=== PATIENT | male | born 1990 | race Hispanic/Latino ===

== ENCOUNTER 2021-06-12 02:32 | Inpatient (IN) | payer OTHER ==
[2021-06-12 03:05] LABS: #Basophils 0.1 thou/uL (0.0-0.2); #Eosinphils 0.2 thou/uL (0.0-0.7); #Lymphocytes 2.9 thou/uL (1.20-3.40); #Monocytes 1.2 thou/uL (0.11-0.59); #Neutrophils 11.5 thou/uL (1.40-6.50); %Basophils 0.6 % (0.0-1.0); %Lymphocytes 18.5 % (21.0-51.0); %Monocytes 7.6 % (0.0-10.0); %Neutrophils 72.4 % (42.0-75.0); Hemoglobin 15.6 g/dL (14.0-18.0); Mean Corpuscular HGB CONC 36.1 g/dL (32.0-36.0); Mean Corpuscular Hemoglobin 33.4 pg (27.0-31.0); Mean Corpuscular Volume 92.6 fL (78.0-98.0); Mean Platelet Volume 8.3 fL (7.4-10.4); Platelet Count 228 thou/uL (130-400); Red Blood Cell (RBC) Count 4.66 mill/uL (4.70-6.10); White Blood Cell (WBC) Count 15.9 thou/uL (4.8-10.8)
[2021-06-12 03:27] LABS: ALT (SGPT) 49 U/L (8-55); AST (SGOT) 49 U/L (5-34); Alcohol Less than 10 mg/dL (Less than 10); Alkaline Phosphatase 53 U/L (40-110); Anion Gap 15 mmol/L (10-20); BUN (Urea Nitrogen) 16 mg/dL (8.9-20.6); Bilirubin, Total 0.5 mg/dL (0.2-1.2); Calc. Creatinine Clearance 0 mL/min (70-130); Carbon Dioxide 21 mmol/L (22-29); Chloride 105 mmol/L (98-107); Globulin 2.9 g/dL (2.4-3.5); Glucose 149 mg/dL (70-105); Lipase 77 U/L (8-78); Potassium 3.6 mmol/L (3.5-5.1); Protein, Total 6.9 g/dL (6.0-8.3); Sodium 137 mmol/L (136-145)
[2021-06-12] MEDS ORDERED: Fentanyl 100 MCG/2 ML VIAL ONE (04:38)
[2021-06-12] MEDS ORDERED: Ondansetron PF 4 MG/2 ML Vial ONE (04:42)
[2021-06-12] MEDS ORDERED: Ampicillin 2 GM VIAL ONE (04:49)
[2021-06-12] MEDS ORDERED: Lidocaine 1% (PF) 30 ML VIAL ONE (04:54)
[2021-06-12] MEDS ORDERED: Ondansetron PF 4 MG/2 ML Vial IVP PRN (05:14)
[2021-06-12] MEDS ORDERED: Dextrose 50% Abboject 50 ML SYRINGE SLOW IVP PRN (05:14)
[2021-06-12] MEDS ORDERED: hydrALAZINE 20 MG/ML VIAL SLOW IVP PRN (05:14)
[2021-06-12] MEDS ORDERED: Dextrose 5% in Water 1,000 ML IV PRN (05:14)
[2021-06-12] MEDS ORDERED: Ampicillin/Sulbactam 3 GM in Sodium Chloride 0.9% 100 ML IVPB SCH (05:15)
[2021-06-12] MEDS ORDERED: Morphine 4 MG/ML VIAL SLOW IVP PRN ×2 (05:59→20:10)
[2021-06-12] MEDS ORDERED: Boostrix 0.5 ML (Tdap) VIAL ONE ×3 (05:59→06:01)
[2021-06-12 07:32] LABS: SARS-CoV-2 NAA Rapid Test Not Detected (NotDetected)
[2021-06-12] MEDS ORDERED: Sodium Chloride 0.9% 1,000 ML IV SCH ×2 (09:30→12:59)
[2021-06-12] MEDS ORDERED: ceFAZolin Sodium/D5W 2 GM in Premix Bag 1 BAG IVPB SCH (09:45)
[2021-06-12] MEDS: Bacitracin 1 PK TOP SCH ×2 (09:58→20:07)
[2021-06-12] MEDS: Famotidine/PF 20 mg/2ml Vial SLOW IVP SCH ×2 (09:58→20:08)
[2021-06-12 11:05] LABS: Hemoglobin 13.7 g/dL (14.0-18.0); Mean Corpuscular Hemoglobin 32.5 pg (27.0-31.0); Mean Corpuscular Volume 92.7 fL (78.0-98.0); Mean Platelet Volume 8.9 fL (7.4-10.4); Platelet Count 163 thou/uL (130-400); RBC Distribution Width 11.1 % (11.5-14.5); Red Blood Cell (RBC) Count 4.21 mill/uL (4.70-6.10)
[2021-06-12] MEDS ORDERED: Iopamidol 370 76% 100 ML VIAL ONE (11:06)
[2021-06-12] MEDS: Morphine 4 MG/ML VIAL SLOW IVP PRN ×2 (11:48→17:42)
[2021-06-12] MEDS ORDERED: FLU VACC QS2021-22(6MOS UP)/PF 60 MCG/0.5 ML SYRINGE IM ONE (12:00)
[2021-06-12] MEDS: Silver Sulfadiazine 50 GM TUBE TOP SCH ×2 (13:33→20:07)
[2021-06-12 16:22] LABS: Hemoglobin 12.1 g/dL (14.0-18.0); Platelet Count 197 thou/uL (130-400)
[2021-06-12 18:01] LABS: Bacteria/HPF None Seen HPF (None Seen); Bilirubin Negative (Negative); Blood, Urine 3+ (Negative); Clarity Clear (Clear); Glucose, Urine (Dipstick) Normal (Negative); Ketone, Urine Trace mg/dL (Negative); Leukocyte Negative Leu/uL (Negative); Nitrite Negative (Negative); Protein, Urine (Dipstick) 70 mg/dL (Neg-Trace); RBC/HPF Greater than 50 HPF (0-3); Squamous Epithelial 0-3 HPF (0-3); Urobilinogen Normal mg/dL (Less than 2); WBC/HPF 21-50 HPF (0-3); pH, Urine 5.5 (5.0-9.0)
[2021-06-12 18:06] LABS: Amphetamine Not Detected (NotDetected); Barbiturates Screen Not Detected (NotDetected); Benzodiazepine Screen Not Detected (NotDetected); Cocaine Metabolite Screen Not Detected (NotDetected); Methadone Not Detected (NotDetected); Methamphetamine Not Detected (NotDetected); Opiate Screen Detected (NotDetected); Oxycodone Screen Not Detected (NotDetected); Phencyclidine (PCP) Not Detected (NotDetected); THC/Cannabinoid Screen Not Detected (NotDetected); Tricyclic Screen Not Detected (NotDetected)
[2021-06-12] MEDS ORDERED: Cyclobenzaprine 10 MG TAB PO PRN (20:09)
[2021-06-12] MEDS ORDERED: traMADol HCl 50 MG TAB PO PRN (20:09)
[2021-06-12] MEDS: Senokot S 8.6-50 MG TAB PO SCH (21:27)
[2021-06-12] MEDS: Gabapentin 300 MG CAP PO SCH (21:27)
[2021-06-12] MEDS: Acetaminophen 500 MG TAB PO SCH (23:24)
[2021-06-12] MEDS: Sodium Chloride 0.9% 1,000 ML IV SCH (23:24)
[2021-06-13 04:51] LABS: Anion Gap 11 mmol/L (10-20); BUN (Urea Nitrogen) 23 mg/dL (8.9-20.6); Calc. Creatinine Clearance 189 mL/min (70-130); Calcium 7.5 mg/dL (7.8-10.44); Carbon Dioxide 24 mmol/L (22-29); Chloride 102 mmol/L (98-107); Glucose 140 mg/dL (70-105); Magnesium 1.7 mg/dL (1.6-2.6); Phosphorus 2.7 mg/dL (2.3-4.7); Potassium 3.9 mmol/L (3.5-5.1); Sodium 133 mmol/L (136-145)
[2021-06-13] MEDS: Acetaminophen 500 MG TAB PO SCH ×4 (05:31→23:35)
[2021-06-13] MEDS: Sodium Chloride 0.9% 1,000 ML IV SCH ×2 (05:32→17:13)
[2021-06-13 06:36] LABS: Hemoglobin 9.8 g/dL (14.0-18.0); Mean Corpuscular HGB CONC 36.4 g/dL (32.0-36.0); Mean Corpuscular Hemoglobin 33.7 pg (27.0-31.0); Mean Corpuscular Volume 92.4 fL (78.0-98.0); Mean Platelet Volume 8.2 fL (7.4-10.4); Platelet Count 153 thou/uL (130-400); RBC Distribution Width 10.8 % (11.5-14.5); Red Blood Cell (RBC) Count 2.92 mill/uL (4.70-6.10); White Blood Cell (WBC) Count 12.5 thou/uL (4.8-10.8)
[2021-06-13 06:37] LABS: Band 17 % (5-11); Lymphocytes 15 % (21-51); MDiff Complete? YES; Monocytes 9 % (0-10); Neutrophil 59 % (42-75)
[2021-06-13] MEDS: Gabapentin 300 MG CAP PO SCH ×3 (10:07→20:01)
[2021-06-13] MEDS: Polyethylene Glycol 3350 17 GM Packet PO SCH (10:07)
[2021-06-13] MEDS: Senokot S 8.6-50 MG TAB PO SCH ×2 (10:07→20:01)
[2021-06-13] MEDS: Silver Sulfadiazine 50 GM TUBE TOP SCH ×2 (10:09→20:01)
[2021-06-13] MEDS: Magnesium 2 GM/50 ML 2 GM in Premix Bag 1 BAG IVPB SCH ×2 (10:12→11:41)
[2021-06-13] MEDS: Famotidine/PF 20 mg/2ml Vial SLOW IVP SCH ×2 (10:12→20:01)
[2021-06-13] MEDS: Bacitracin 1 PK TOP SCH ×2 (10:13→20:02)
[2021-06-13] MEDS ORDERED: Potassium Phosphate 30 MMOL in Sodium Chloride 0.9% 500 ML IVPB SCH (12:00)
[2021-06-13] MEDS ORDERED: hydrALAZINE 20 MG/ML VIAL ONE (12:05)
[2021-06-13] MEDS ORDERED: HYDROmorphone 0.5 MG/0.5 ML SYRINGE ONE (12:25)
[2021-06-13] MEDS ORDERED: Ketorolac Tromethamine 30 MG/ML VIAL ONE (12:54)
[2021-06-13] MEDS ORDERED: Lidocaine 1% PF 5 ML VIAL ONE (12:54)
[2021-06-13] MEDS ORDERED: PHENYLEPHRINE-NS 100 MCG/ML 10 ML SYRINGE ONE (12:54)
[2021-06-13] MEDS ORDERED: PROPOFOL 200 MG/20 ML VIAL ONE (12:54)
[2021-06-13] MEDS ORDERED: Dexamethasone 20 MG/5 ML VIAL ONE (12:54)
[2021-06-13] MEDS ORDERED: Ondansetron PF 4 MG/2 ML Vial ONE (12:54)
[2021-06-13] MEDS ORDERED: Esmolol 100 MG/10 ML VIAL ONE (12:54)
[2021-06-13] MEDS ORDERED: Phenylephrine 10 MG/ML VIAL ONE (13:21)
[2021-06-13] MEDS ORDERED: Bupivacaine PF 0.5% 30 ML VIAL ONE (13:43)
[2021-06-13] MEDS ORDERED: HYDROmorphone 2 MG/ML VIAL ONE (14:03)
[2021-06-13] MEDS ORDERED: Promethazine HCl 25 MG/ML VIAL IVPB PRN (14:30)
[2021-06-13] MEDS ORDERED: Promethazine HCl 25 MG/ML VIAL IM PRN (14:30)
[2021-06-13] MEDS ORDERED: HYDROmorphone 2 MG/ML VIAL SLOW IVP PRN (14:30)
[2021-06-13] MEDS: traMADol HCl 50 MG TAB PO PRN (17:50)
[2021-06-13] MEDS ORDERED: ceFAZolin Sodium/D5W 2 GM in Premix Bag 1 BAG IVPB SCH (21:00)
[2021-06-13] MEDS: CEFAZOLIN 2 GM in Premix Bag 1 BAG IVPB SCH (22:45)
[2021-06-14] MEDS: CEFAZOLIN 2 GM in Premix Bag 1 BAG IVPB SCH (05:34)
[2021-06-14] MEDS: Acetaminophen 500 MG TAB PO SCH ×4 (05:35→23:27)
[2021-06-14 06:16] LABS: #Eosinphils 0.1 thou/uL (0.0-0.7); #Lymphocytes 1.3 thou/uL (1.20-3.40); #Monocytes 1.6 thou/uL (0.11-0.59); #Neutrophils 10.5 thou/uL (1.40-6.50); %Basophils 0.1 % (0.0-1.0); %Eosinophils 0.4 % (0.0-10.0); %Lymphocytes 9.9 % (21.0-51.0); %Neutrophils 77.7 % (42.0-75.0); Mean Corpuscular HGB CONC 35.8 g/dL (32.0-36.0); Mean Corpuscular Hemoglobin 32.8 pg (27.0-31.0); Mean Corpuscular Volume 91.5 fL (78.0-98.0); Mean Platelet Volume 7.7 fL (7.4-10.4); Platelet Count 140 thou/uL (130-400); RBC Distribution Width 10.7 % (11.5-14.5); Red Blood Cell (RBC) Count 2.14 mill/uL (4.70-6.10); White Blood Cell (WBC) Count 13.5 thou/uL (4.8-10.8)
[2021-06-14 06:37] LABS: Anion Gap 10 mmol/L (10-20); BUN (Urea Nitrogen) 13 mg/dL (8.9-20.6); Calc. Creatinine Clearance 257 mL/min (70-130); Calcium 7.4 mg/dL (7.8-10.44); Carbon Dioxide 26 mmol/L (22-29); Chloride 102 mmol/L (98-107); Glucose 116 mg/dL (70-105); Phosphorus 2.2 mg/dL (2.3-4.7); Potassium 4.4 mmol/L (3.5-5.1); Sodium 134 mmol/L (136-145)
[2021-06-14 06:39] LABS: Magnesium 2.5 mg/dL (1.6-2.6)
[2021-06-14] MEDS: Gabapentin 300 MG CAP PO SCH ×3 (08:19→20:32)
[2021-06-14] MEDS: Senokot S 8.6-50 MG TAB PO SCH ×2 (08:19→20:31)
[2021-06-14] MEDS: traMADol HCl 50 MG TAB PO PRN ×3 (08:19→23:28)
[2021-06-14] MEDS: Polyethylene Glycol 3350 17 GM Packet PO SCH (08:20)
[2021-06-14] MEDS: Silver Sulfadiazine 50 GM TUBE TOP SCH ×2 (08:21→20:34)
[2021-06-14] MEDS: Famotidine/PF 20 mg/2ml Vial SLOW IVP SCH (08:21)
[2021-06-14] MEDS: Bacitracin 1 PK TOP SCH ×2 (08:21→20:33)
[2021-06-14 08:42] LABS: Hemoglobin 7.2 g/dL (14.0-18.0); Mean Corpuscular HGB CONC 34.3 g/dL (32.0-36.0); Mean Corpuscular Volume 93.2 fL (78.0-98.0); Platelet Count 147 thou/uL (130-400); RBC Distribution Width 10.7 % (11.5-14.5); Red Blood Cell (RBC) Count 2.25 mill/uL (4.70-6.10)
[2021-06-14 09:00] LABS: Band 8 % (5-11); Lymphocytes 5 % (21-51); MDiff Complete? YES; Monocytes 7 % (0-10); Neutrophil 79 % (42-75); Platelet Morphology Comment Appears Adequate; Polychromasia SLIGHT = 2-3 cells (100X) (0-2/hpf); Reactive Lymphocytes 1 % (0-10); White Blood Cell (WBC) Count 13.7 thou/uL (4.8-10.8)
[2021-06-14] MEDS ORDERED: Potassium Phosphate 30 MMOL in Sodium Chloride 0.9% 250 ML 250 ML IVPB SCH (09:15)
[2021-06-14] MEDS: Ascorbic Acid 500 mg Chewable Tablet PO SCH ×2 (11:38→20:31)
[2021-06-14] MEDS: Ferrous Sulfate 325 MG TAB PO SCH ×2 (11:38→20:32)
[2021-06-14] MEDS: Ibuprofen 600 MG TAB PO SCH ×2 (13:55→21:00)
[2021-06-14] MEDS ORDERED: Ferrous Sulfate 325 MG TAB PO SCH (17:00)
[2021-06-14] MEDS: Famotidine 20 MG TAB PO SCH (20:32)
[2021-06-14] MEDS ORDERED: Ascorbic Acid 500 mg Chewable Tablet PO SCH (21:00)
[2021-06-15] MEDS: Ibuprofen 600 MG TAB PO SCH ×2 (02:56→10:52)
[2021-06-15] MEDS: Acetaminophen 500 MG TAB PO SCH ×3 (05:50→17:03)
[2021-06-15 06:07] LABS: #Eosinphils 0.1 thou/uL (0.0-0.7); #Lymphocytes 2.6 thou/uL (1.20-3.40); #Monocytes 1.4 thou/uL (0.11-0.59); #Neutrophils 10.2 thou/uL (1.40-6.50); %Basophils 0.3 % (0.0-1.0); %Eosinophils 0.6 % (0.0-10.0); %Lymphocytes 17.9 % (21.0-51.0); %Neutrophils 71.3 % (42.0-75.0); Hemoglobin 6.6 g/dL (14.0-18.0); Mean Corpuscular HGB CONC 36.1 g/dL (32.0-36.0); Mean Corpuscular Volume 94.4 fL (78.0-98.0); Mean Platelet Volume 7.7 fL (7.4-10.4); Platelet Count 195 thou/uL (130-400); Red Blood Cell (RBC) Count 1.95 mill/uL (4.70-6.10); White Blood Cell (WBC) Count 14.3 thou/uL (4.8-10.8)
[2021-06-15 06:25] LABS: Anion Gap 8 mmol/L (10-20); BUN (Urea Nitrogen) 13 mg/dL (8.9-20.6); Calc. Creatinine Clearance 251 mL/min (70-130); Calcium 7.7 mg/dL (7.8-10.44); Carbon Dioxide 26 mmol/L (22-29); Chloride 105 mmol/L (98-107); Glucose 94 mg/dL (70-105); Potassium 4.2 mmol/L (3.5-5.1); Sodium 135 mmol/L (136-145)
[2021-06-15] MEDS: Famotidine 20 MG TAB PO SCH ×2 (08:48→19:51)
[2021-06-15] MEDS: Bacitracin 1 PK TOP SCH ×2 (08:49→19:52)
[2021-06-15] MEDS: Ascorbic Acid 500 mg Chewable Tablet PO SCH ×2 (08:50→19:52)
[2021-06-15] MEDS: Gabapentin 300 MG CAP PO SCH ×3 (08:50→19:53)
[2021-06-15] MEDS: Ferrous Sulfate 325 MG TAB PO SCH ×2 (08:51→19:00)
[2021-06-15] MEDS: Senokot S 8.6-50 MG TAB PO SCH ×2 (08:51→19:52)
[2021-06-15] MEDS: Polyethylene Glycol 3350 17 GM Packet PO SCH (08:52)
[2021-06-15] MEDS: Silver Sulfadiazine 50 GM TUBE TOP SCH ×2 (10:51→20:59)
[2021-06-15] MEDS: traMADol HCl 50 MG TAB PO SCH (18:23)
[2021-06-16] MEDS: Acetaminophen 500 MG TAB PO SCH ×4 (00:24→18:40)
[2021-06-16] MEDS: traMADol HCl 50 MG TAB PO SCH ×4 (00:26→18:41)
[2021-06-16] MEDS: Cyclobenzaprine 10 MG TAB PO PRN ×3 (01:46→21:34)
[2021-06-16 06:11] LABS: Hemoglobin 8.9 g/dL (14.0-18.0); Mean Corpuscular HGB CONC 34.3 g/dL (32.0-36.0); Mean Corpuscular Hemoglobin 31.7 pg (27.0-31.0); Mean Corpuscular Volume 92.5 fL (78.0-98.0); Mean Platelet Volume 7.4 fL (7.4-10.4); Platelet Count 283 thou/uL (130-400); RBC Distribution Width 11.7 % (11.5-14.5); White Blood Cell (WBC) Count 16.8 thou/uL (4.8-10.8)
[2021-06-16 06:21] LABS: Anion Gap 13 mmol/L (10-20); BUN (Urea Nitrogen) 12 mg/dL (8.9-20.6); Calc. Creatinine Clearance 232 mL/min (70-130); Calcium 8.3 mg/dL (7.8-10.44); Carbon Dioxide 24 mmol/L (22-29); Chloride 102 mmol/L (98-107); Glucose 96 mg/dL (70-105); Phosphorus 3.4 mg/dL (2.3-4.7); Potassium 4.3 mmol/L (3.5-5.1); Sodium 135 mmol/L (136-145)
[2021-06-16 06:36] LABS: Band 11 % (5-11); Eosinophils 2 % (0-10); Lymphocytes 7 % (21-51); MDiff Complete? YES; Metamyelocyte 2 % (0-0); Monocytes 6 % (0-10); Myelocyte 3 % (0-0); Neutrophil 69 % (42-75); Nucleated RBC 2 % (0)
[2021-06-16] MEDS: Senokot S 8.6-50 MG TAB PO SCH ×2 (10:05→21:31)
[2021-06-16] MEDS: Ferrous Sulfate 325 MG TAB PO SCH ×2 (10:05→21:28)
[2021-06-16] MEDS: Ascorbic Acid 500 mg Chewable Tablet PO SCH ×2 (10:05→21:28)
[2021-06-16] MEDS: Gabapentin 300 MG CAP PO SCH ×3 (10:06→21:29)
[2021-06-16] MEDS: Bacitracin 1 PK TOP SCH ×2 (10:06→21:28)
[2021-06-16] MEDS: Polyethylene Glycol 3350 17 GM Packet PO SCH (10:07)
[2021-06-16] MEDS: Silver Sulfadiazine 50 GM TUBE TOP SCH ×2 (10:07→21:31)
[2021-06-16 19:21] LABS: Hemoglobin 8.8 g/dL (14.0-18.0); Platelet Count 288 thou/uL (130-400)
[2021-06-16] MEDS: Enoxaparin Sodium 40 MG/0.4 ML SYRINGE SC SCH (21:27)
[2021-06-17] MEDS: traMADol HCl 50 MG TAB PO SCH ×4 (00:17→18:17)
[2021-06-17] MEDS: Acetaminophen 500 MG TAB PO SCH ×4 (00:18→18:18)
[2021-06-17 08:09] LABS: Hemoglobin 9.1 g/dL (14.0-18.0); Mean Corpuscular HGB CONC 36.3 g/dL (32.0-36.0); Mean Corpuscular Hemoglobin 33.4 pg (27.0-31.0); Mean Corpuscular Volume 92.2 fL (78.0-98.0); Mean Platelet Volume 7.2 fL (7.4-10.4); Platelet Count 319 thou/uL (130-400); RBC Distribution Width 12.3 % (11.5-14.5); Red Blood Cell (RBC) Count 2.73 mill/uL (4.70-6.10); White Blood Cell (WBC) Count 21.6 thou/uL (4.8-10.8)
[2021-06-17 08:12] LABS: Band 10 % (5-11); Eosinophils 2 % (0-10); Lymphocytes 11 % (21-51); MDiff Complete? YES; Metamyelocyte 3 % (0-0); Monocytes 10 % (0-10); Myelocyte 2 % (0-0); Neutrophil 61 % (42-75); Platelet Morphology Comment Appears Adequate; Polychromasia MODERATE = 3-4 cells (100X) (0-2/hpf)
[2021-06-17] MEDS: traMADol HCl 50 MG TAB PO PRN (09:29)
[2021-06-17] MEDS: Polyethylene Glycol 3350 17 GM Packet PO SCH (09:30)
[2021-06-17] MEDS: Ferrous Sulfate 325 MG TAB PO SCH ×2 (09:31→21:11)
[2021-06-17] MEDS: Bacitracin 1 PK TOP SCH ×2 (09:31→21:12)
[2021-06-17] MEDS: Senokot S 8.6-50 MG TAB PO SCH ×2 (09:31→21:10)
[2021-06-17] MEDS: Gabapentin 300 MG CAP PO SCH ×3 (09:31→21:11)
[2021-06-17] MEDS: Ascorbic Acid 500 mg Chewable Tablet PO SCH ×2 (09:31→21:10)
[2021-06-17] MEDS: Silver Sulfadiazine 50 GM TUBE TOP SCH ×2 (09:32→21:12)
[2021-06-17 18:08] LABS: Magnesium 2.1 mg/dL (1.6-2.6)
[2021-06-17 20:27] LABS: Magnesium 2.1 mg/dL (1.6-2.6)
[2021-06-17] MEDS: Enoxaparin Sodium 40 MG/0.4 ML SYRINGE SC SCH (21:12)
[2021-06-18] MEDS: traMADol HCl 50 MG TAB PO SCH ×5 (00:34→18:39)
[2021-06-18] MEDS: Acetaminophen 500 MG TAB PO SCH ×4 (00:34→17:45)
[2021-06-18 06:17] LABS: Band 10 % (5-11); Eosinophils 4 % (0-10); Lymphocytes 8 % (21-51); MDiff Complete? YES; Mean Corpuscular HGB CONC 31.2 g/dL (32.0-36.0); Mean Corpuscular Hemoglobin 29.5 pg (27.0-31.0); Mean Corpuscular Volume 94.7 fL (78.0-98.0); Mean Platelet Volume 7.1 fL (7.4-10.4); Metamyelocyte 6 % (0-0); Monocytes 5 % (0-10); Myelocyte 2 % (0-0); Neutrophil 65 % (42-75); Platelet Count 403 thou/uL (130-400); Platelet Morphology Comment Appears Adequate; RBC Distribution Width 12.4 % (11.5-14.5); Red Blood Cell (RBC) Count 3.05 mill/uL (4.70-6.10); White Blood Cell (WBC) Count 23.4 thou/uL (4.8-10.8)
[2021-06-18 06:41] LABS: Anion Gap 12 mmol/L (10-20); BUN (Urea Nitrogen) 16 mg/dL (8.9-20.6); Calc. Creatinine Clearance 258 mL/min (70-130); Calcium 8.6 mg/dL (7.8-10.44); Carbon Dioxide 24 mmol/L (22-29); Chloride 102 mmol/L (98-107); Glucose 104 mg/dL (70-105); Phosphorus 5.2 mg/dL (2.3-4.7); Potassium 4.6 mmol/L (3.5-5.1); Sodium 133 mmol/L (136-145)
[2021-06-18] MEDS ORDERED: Magnesium Citrate 300 ML BOT PO SCH (08:00)
[2021-06-18] MEDS: Polyethylene Glycol 3350 17 GM Packet PO SCH (08:59)
[2021-06-18] MEDS: traMADol HCl 50 MG TAB PO PRN (09:04)
[2021-06-18] MEDS: Senokot S 8.6-50 MG TAB PO SCH ×3 (09:04→20:35)
[2021-06-18] MEDS: Gabapentin 300 MG CAP PO SCH ×3 (09:05→20:32)
[2021-06-18] MEDS: Ferrous Sulfate 325 MG TAB PO SCH ×2 (09:05→20:33)
[2021-06-18] MEDS: Silver Sulfadiazine 50 GM TUBE TOP SCH ×2 (09:05→20:35)
[2021-06-18] MEDS: Aspirin 81 mg Enteric Coated Tablet PO SCH (09:05)
[2021-06-18] MEDS: Ascorbic Acid 500 mg Chewable Tablet PO SCH ×2 (09:05→20:32)
[2021-06-18] MEDS: Bacitracin 1 PK TOP SCH ×2 (09:05→20:32)
[2021-06-18] MEDS ORDERED: Ibuprofen 600 MG TAB PO SCH (18:00)
[2021-06-18] MEDS: Ibuprofen 200 MG TAB PO SCH (18:39)
[2021-06-18] MEDS ORDERED: Diazepam 2 MG TAB PO SCH (19:00)
[2021-06-18] MEDS: Enoxaparin Sodium 30 MG/0.3 ML SYRINGE SC SCH (20:33)
[2021-06-19] MEDS: traMADol HCl 50 MG TAB PO SCH ×5 (00:09→23:31)
[2021-06-19] MEDS: Acetaminophen 500 MG TAB PO SCH ×5 (00:10→23:32)
[2021-06-19] MEDS: Ibuprofen 200 MG TAB PO SCH ×3 (02:16→19:06)
[2021-06-19 06:36] LABS: Anion Gap 15 mmol/L (10-20); BUN (Urea Nitrogen) 17 mg/dL (8.9-20.6); Calc. Creatinine Clearance 256 mL/min (70-130); Calcium 8.7 mg/dL (7.8-10.44); Carbon Dioxide 25 mmol/L (22-29); Chloride 102 mmol/L (98-107); Glucose 100 mg/dL (70-105); Magnesium 2.2 mg/dL (1.6-2.6); Phosphorus 5.3 mg/dL (2.3-4.7); Potassium 4.7 mmol/L (3.5-5.1); Sodium 137 mmol/L (136-145)
[2021-06-19 06:43] LABS: Band 3 % (5-11); Eosinophils 1 % (0-10); Hemoglobin 8.9 g/dL (14.0-18.0); Lymphocytes 7 % (21-51); MDiff Complete? YES; Mean Corpuscular HGB CONC 32.4 g/dL (32.0-36.0); Mean Corpuscular Volume 95.6 fL (78.0-98.0); Metamyelocyte 1 % (0-0); Monocytes 4 % (0-10); Myelocyte 5 % (0-0); Neutrophil 74 % (42-75); Platelet Count 421 thou/uL (130-400); Platelet Morphology Comment Appears Increased; RBC Distribution Width 12.4 % (11.5-14.5); RBC Morphology Normal; Reactive Lymphocytes 4 % (0-10); Red Blood Cell (RBC) Count 2.88 mill/uL (4.70-6.10); White Blood Cell (WBC) Count 20.4 thou/uL (4.8-10.8)
[2021-06-19] MEDS: Ascorbic Acid 500 mg Chewable Tablet PO SCH ×2 (08:36→20:39)
[2021-06-19] MEDS: Aspirin 81 mg Enteric Coated Tablet PO SCH (08:38)
[2021-06-19] MEDS: Bacitracin 1 PK TOP SCH ×2 (08:39→20:39)
[2021-06-19] MEDS: Enoxaparin Sodium 30 MG/0.3 ML SYRINGE SC SCH ×2 (08:39→20:38)
[2021-06-19] MEDS: Ferrous Sulfate 325 MG TAB PO SCH ×2 (08:41→20:39)
[2021-06-19] MEDS: Gabapentin 300 MG CAP PO SCH ×3 (08:42→20:39)
[2021-06-19] MEDS: Senokot S 8.6-50 MG TAB PO SCH ×2 (08:47→20:39)
[2021-06-19] MEDS: Polyethylene Glycol 3350 17 GM Packet PO SCH (08:47)
[2021-06-19] MEDS: Silver Sulfadiazine 50 GM TUBE TOP SCH ×2 (08:49→20:40)
[2021-06-19 22:38] LABS: SARS-CoV-2 PCR by NAA Not Detected (NotDetected)
[2021-06-20] MEDS: Ibuprofen 200 MG TAB PO SCH ×3 (03:05→18:23)
[2021-06-20] MEDS: Acetaminophen 500 MG TAB PO SCH ×4 (05:46→23:17)
[2021-06-20] MEDS: traMADol HCl 50 MG TAB PO SCH ×4 (05:47→23:07)
[2021-06-20 06:17] LABS: #Basophils 0.1 thou/uL (0.0-0.2); #Eosinphils 0.6 thou/uL (0.0-0.7); #Lymphocytes 2.3 thou/uL (1.20-3.40); #Monocytes 1.4 thou/uL (0.11-0.59); %Basophils 0.3 % (0.0-1.0); %Eosinophils 3.4 % (0.0-10.0); %Lymphocytes 13.3 % (21.0-51.0); %Monocytes 7.9 % (0.0-10.0); %Neutrophils 75.1 % (42.0-75.0); Mean Corpuscular HGB CONC 32.4 g/dL (32.0-36.0); Mean Corpuscular Hemoglobin 30.7 pg (27.0-31.0); Mean Corpuscular Volume 94.9 fL (78.0-98.0); Mean Platelet Volume 6.8 fL (7.4-10.4); Platelet Count 504 thou/uL (130-400); RBC Distribution Width 12.4 % (11.5-14.5); Red Blood Cell (RBC) Count 2.92 mill/uL (4.70-6.10); White Blood Cell (WBC) Count 17.3 thou/uL (4.8-10.8)
[2021-06-20] MEDS: Senokot S 8.6-50 MG TAB PO SCH ×2 (09:02→20:54)
[2021-06-20] MEDS: Polyethylene Glycol 3350 17 GM Packet PO SCH (09:02)
[2021-06-20] MEDS: Ferrous Sulfate 325 MG TAB PO SCH ×2 (09:08→20:53)
[2021-06-20] MEDS: Bacitracin 1 PK TOP SCH ×2 (09:08→20:50)
[2021-06-20] MEDS: Aspirin 81 mg Enteric Coated Tablet PO SCH (09:08)
[2021-06-20] MEDS: Ascorbic Acid 500 mg Chewable Tablet PO SCH ×2 (09:08→20:49)
[2021-06-20] MEDS: Enoxaparin Sodium 30 MG/0.3 ML SYRINGE SC SCH ×2 (09:09→20:50)
[2021-06-20] MEDS: Silver Sulfadiazine 50 GM TUBE TOP SCH ×2 (09:10→20:55)
[2021-06-20] MEDS: Gabapentin 300 MG CAP PO SCH ×3 (09:10→20:53)
[2021-06-20] MEDS: Cyclobenzaprine 10 MG TAB PO PRN (20:53)
[2021-06-21] MEDS: Ibuprofen 200 MG TAB PO SCH ×3 (03:24→18:10)
[2021-06-21] MEDS: Acetaminophen 500 MG TAB PO SCH ×3 (06:17→18:10)
[2021-06-21] MEDS: traMADol HCl 50 MG TAB PO SCH ×3 (06:18→18:11)
[2021-06-21] MEDS: Aspirin 81 mg Enteric Coated Tablet PO SCH (09:27)
[2021-06-21] MEDS: Ferrous Sulfate 325 MG TAB PO SCH ×2 (09:28→21:20)
[2021-06-21] MEDS: Bacitracin 1 PK TOP SCH ×2 (09:28→21:20)
[2021-06-21] MEDS: Gabapentin 300 MG CAP PO SCH ×3 (09:28→21:20)
[2021-06-21] MEDS: Ascorbic Acid 500 mg Chewable Tablet PO SCH ×2 (09:28→21:21)
[2021-06-21] MEDS: Enoxaparin Sodium 30 MG/0.3 ML SYRINGE SC SCH ×2 (09:29→21:19)
[2021-06-21] MEDS: Polyethylene Glycol 3350 17 GM Packet PO SCH (09:29)
[2021-06-21] MEDS: Senokot S 8.6-50 MG TAB PO SCH ×2 (09:29→21:20)
[2021-06-21] MEDS: Silver Sulfadiazine 50 GM TUBE TOP SCH ×2 (09:33→21:21)
[2021-06-21] MEDS ORDERED: Morphine 4 MG/ML VIAL ONE (12:39)
[2021-06-21] MEDS ORDERED: Morphine 4 MG/ML VIAL SLOW IVP PRN (12:43)
[2021-06-21] MEDS: Cyclobenzaprine 10 MG TAB PO PRN (21:20)
[2021-06-22] MEDS: traMADol HCl 50 MG TAB PO SCH ×5 (00:30→23:33)
[2021-06-22] MEDS: Acetaminophen 500 MG TAB PO SCH ×5 (00:31→23:32)
[2021-06-22] MEDS: Ibuprofen 200 MG TAB PO SCH ×3 (03:14→18:12)
[2021-06-22] MEDS: Enoxaparin Sodium 30 MG/0.3 ML SYRINGE SC SCH ×2 (09:10→20:50)
[2021-06-22] MEDS: Bacitracin 1 PK TOP SCH ×2 (09:10→20:50)
[2021-06-22] MEDS: Aspirin 81 mg Enteric Coated Tablet PO SCH (09:10)
[2021-06-22] MEDS: Ascorbic Acid 500 mg Chewable Tablet PO SCH ×2 (09:11→20:50)
[2021-06-22] MEDS: Ferrous Sulfate 325 MG TAB PO SCH ×2 (09:11→20:50)
[2021-06-22] MEDS: Gabapentin 300 MG CAP PO SCH ×3 (09:11→20:50)
[2021-06-22] MEDS: Silver Sulfadiazine 50 GM TUBE TOP SCH ×2 (09:12→20:51)
[2021-06-22] MEDS: Senokot S 8.6-50 MG TAB PO SCH ×2 (09:12→20:50)
[2021-06-22] MEDS: Polyethylene Glycol 3350 17 GM Packet PO SCH (09:12)
[2021-06-22 09:46] LABS: #Basophils 0.1 thou/uL (0.0-0.2); #Eosinphils 0.5 thou/uL (0.0-0.7); #Monocytes 0.6 thou/uL (0.11-0.59); #Neutrophils 15.5 thou/uL (1.40-6.50); %Basophils 0.4 % (0.0-1.0); %Eosinophils 2.4 % (0.0-10.0); %Lymphocytes 10.6 % (21.0-51.0); %Neutrophils 83.6 % (42.0-75.0); Hemoglobin 10.1 g/dL (14.0-18.0); Mean Corpuscular HGB CONC 33.8 g/dL (32.0-36.0); Mean Corpuscular Hemoglobin 32.1 pg (27.0-31.0); Mean Corpuscular Volume 94.8 fL (78.0-98.0); Mean Platelet Volume 6.7 fL (7.4-10.4); Platelet Count 670 thou/uL (130-400); RBC Distribution Width 13.3 % (11.5-14.5); Red Blood Cell (RBC) Count 3.15 mill/uL (4.70-6.10); White Blood Cell (WBC) Count 18.6 thou/uL (4.8-10.8)
[2021-06-22] MEDS: Melatonin 3 MG TAB PO SCH (20:50)
[2021-06-22] MEDS: Cyclobenzaprine 10 MG TAB PO PRN (20:52)
[2021-06-23] MEDS: Ibuprofen 200 MG TAB PO SCH ×3 (02:48→18:11)
[2021-06-23] MEDS: Acetaminophen 500 MG TAB PO SCH ×4 (06:12→23:17)
[2021-06-23] MEDS: traMADol HCl 50 MG TAB PO SCH ×4 (06:13→23:17)
[2021-06-23] MEDS: Ascorbic Acid 500 mg Chewable Tablet PO SCH ×2 (10:14→19:57)
[2021-06-23] MEDS: Bacitracin 1 PK TOP SCH ×2 (10:14→19:58)
[2021-06-23] MEDS: Aspirin 81 mg Enteric Coated Tablet PO SCH (10:14)
[2021-06-23] MEDS: Ferrous Sulfate 325 MG TAB PO SCH ×2 (10:14→19:57)
[2021-06-23] MEDS: Gabapentin 300 MG CAP PO SCH ×3 (10:15→19:57)
[2021-06-23] MEDS: Enoxaparin Sodium 30 MG/0.3 ML SYRINGE SC SCH ×2 (10:15→19:57)
[2021-06-23] MEDS: Silver Sulfadiazine 50 GM TUBE TOP SCH ×2 (10:18→19:58)
[2021-06-23] MEDS: Cyclobenzaprine 10 MG TAB PO PRN (10:20)
[2021-06-23] MEDS: Polyethylene Glycol 3350 17 GM Packet PO SCH (10:31)
[2021-06-23] MEDS: Senokot S 8.6-50 MG TAB PO SCH ×2 (10:31→19:58)
[2021-06-23] MEDS: Melatonin 3 MG TAB PO SCH (19:58)
[2021-06-24] MEDS: Ibuprofen 200 MG TAB PO SCH ×3 (02:40→19:49)
[2021-06-24] MEDS: Acetaminophen 500 MG TAB PO SCH ×4 (06:21→23:01)
[2021-06-24] MEDS: traMADol HCl 50 MG TAB PO SCH ×4 (06:21→23:02)
[2021-06-24] MEDS: Bacitracin 1 PK TOP SCH ×2 (09:52→20:43)
[2021-06-24] MEDS: Ascorbic Acid 500 mg Chewable Tablet PO SCH ×2 (09:52→20:42)
[2021-06-24] MEDS: Aspirin 81 mg Enteric Coated Tablet PO SCH (09:52)
[2021-06-24] MEDS: Gabapentin 300 MG CAP PO SCH ×3 (09:54→20:42)
[2021-06-24] MEDS: Ferrous Sulfate 325 MG TAB PO SCH ×2 (09:54→20:43)
[2021-06-24] MEDS: Polyethylene Glycol 3350 17 GM Packet PO SCH (10:06)
[2021-06-24] MEDS: Senokot S 8.6-50 MG TAB PO SCH ×2 (10:07→21:25)
[2021-06-24] MEDS: Enoxaparin Sodium 30 MG/0.3 ML SYRINGE SC SCH ×2 (11:57→20:43)
[2021-06-24] MEDS: Silver Sulfadiazine 50 GM TUBE TOP SCH ×2 (12:37→21:32)
[2021-06-24] MEDS: Melatonin 3 MG TAB PO SCH ×2 (20:43→20:57)
[2021-06-24] MEDS: Cyclobenzaprine 10 MG TAB PO PRN (21:32)
[2021-06-25] MEDS ORDERED: Ibuprofen 600 MG TAB PO PRN (00:01)
[2021-06-25] MEDS: traMADol HCl 50 MG TAB PO SCH ×4 (05:06→23:50)
[2021-06-25] MEDS: Acetaminophen 500 MG TAB PO SCH ×4 (05:07→23:50)
[2021-06-25] MEDS: Aspirin 81 mg Enteric Coated Tablet PO SCH (09:24)
[2021-06-25] MEDS: Bacitracin 1 PK TOP SCH ×2 (09:24→20:58)
[2021-06-25] MEDS: Ferrous Sulfate 325 MG TAB PO SCH ×2 (09:24→20:59)
[2021-06-25] MEDS: Ascorbic Acid 500 mg Chewable Tablet PO SCH ×2 (09:24→20:59)
[2021-06-25] MEDS: Enoxaparin Sodium 30 MG/0.3 ML SYRINGE SC SCH ×2 (09:25→20:58)
[2021-06-25] MEDS: Gabapentin 300 MG CAP PO SCH ×3 (09:25→20:59)
[2021-06-25] MEDS: Polyethylene Glycol 3350 17 GM Packet PO SCH (09:29)
[2021-06-25] MEDS: Senokot S 8.6-50 MG TAB PO SCH ×2 (09:29→21:01)
[2021-06-25] MEDS: Silver Sulfadiazine 50 GM TUBE TOP SCH ×2 (09:30→21:02)
[2021-06-25] MEDS ORDERED: Morphine 4 MG/ML VIAL SLOW IVP PRN (12:23)
[2021-06-25] MEDS: Cyclobenzaprine 10 MG TAB PO SCH ×2 (15:03→20:59)
[2021-06-25] MEDS: Melatonin 3 MG TAB PO SCH (21:01)
[2021-06-26] MEDS: traMADol HCl 50 MG TAB PO SCH ×3 (05:50→17:12)
[2021-06-26] MEDS: Acetaminophen 500 MG TAB PO SCH ×3 (05:50→17:11)
[2021-06-26] MEDS: Polyethylene Glycol 3350 17 GM Packet PO SCH (08:50)
[2021-06-26] MEDS: Enoxaparin Sodium 30 MG/0.3 ML SYRINGE SC SCH ×2 (08:50→20:25)
[2021-06-26] MEDS: Senokot S 8.6-50 MG TAB PO SCH ×2 (08:50→20:26)
[2021-06-26] MEDS: Gabapentin 300 MG CAP PO SCH ×3 (08:50→20:26)
[2021-06-26] MEDS: Bacitracin 1 PK TOP SCH ×2 (08:51→20:26)
[2021-06-26] MEDS: Ascorbic Acid 500 mg Chewable Tablet PO SCH ×2 (08:51→20:26)
[2021-06-26] MEDS: Ferrous Sulfate 325 MG TAB PO SCH ×2 (08:51→20:26)
[2021-06-26] MEDS: Aspirin 81 mg Enteric Coated Tablet PO SCH (08:51)
[2021-06-26] MEDS: Cyclobenzaprine 10 MG TAB PO SCH ×3 (08:51→20:26)
[2021-06-26] MEDS: Silver Sulfadiazine 50 GM TUBE TOP SCH ×2 (08:51→20:27)
[2021-06-26] MEDS: Melatonin 3 MG TAB PO SCH (20:27)
[2021-06-27] MEDS: Acetaminophen 500 MG TAB PO SCH ×5 (00:02→23:50)
[2021-06-27] MEDS: traMADol HCl 50 MG TAB PO SCH ×5 (00:02→23:50)
[2021-06-27 04:48] VITALS: BMI 37.0
[2021-06-27] MEDS: Cyclobenzaprine 10 MG TAB PO SCH (08:41)
[2021-06-27] MEDS: Enoxaparin Sodium 30 MG/0.3 ML SYRINGE SC SCH ×2 (08:41→21:53)
[2021-06-27] MEDS: Senokot S 8.6-50 MG TAB PO SCH ×2 (08:41→21:51)
[2021-06-27] MEDS: Gabapentin 300 MG CAP PO SCH ×3 (08:42→21:54)
[2021-06-27] MEDS: Ferrous Sulfate 325 MG TAB PO SCH ×2 (08:42→21:52)
[2021-06-27] MEDS: Aspirin 81 mg Enteric Coated Tablet PO SCH (08:42)
[2021-06-27] MEDS: Bacitracin 1 PK TOP SCH ×2 (08:43→21:51)
[2021-06-27] MEDS: Silver Sulfadiazine 50 GM TUBE TOP SCH ×2 (08:43→21:55)
[2021-06-27] MEDS: Ascorbic Acid 500 mg Chewable Tablet PO SCH ×2 (08:43→21:55)
[2021-06-27] MEDS: Polyethylene Glycol 3350 17 GM Packet PO SCH (08:44)
[2021-06-27 12:41] LABS: SARS-CoV-2 PCR by NAA Not Detected (NotDetected)
[2021-06-27] MEDS: Melatonin 3 MG TAB PO SCH (21:55)
[2021-06-28] MEDS: traMADol HCl 50 MG TAB PO SCH ×3 (05:41→18:02)
[2021-06-28] MEDS: Acetaminophen 500 MG TAB PO SCH ×3 (05:42→18:01)
[2021-06-28] MEDS: Enoxaparin Sodium 30 MG/0.3 ML SYRINGE SC SCH ×2 (08:51→21:58)
[2021-06-28] MEDS: Ascorbic Acid 500 mg Chewable Tablet PO SCH ×2 (08:51→22:01)
[2021-06-28] MEDS: Senokot S 8.6-50 MG TAB PO SCH ×2 (08:51→22:01)
[2021-06-28] MEDS: Aspirin 81 mg Enteric Coated Tablet PO SCH (08:51)
[2021-06-28] MEDS: Gabapentin 300 MG CAP PO SCH ×3 (08:52→22:00)
[2021-06-28] MEDS: Polyethylene Glycol 3350 17 GM Packet PO SCH (08:52)
[2021-06-28] MEDS: Bacitracin 1 PK TOP SCH ×2 (08:52→22:01)
[2021-06-28] MEDS: Ferrous Sulfate 325 MG TAB PO SCH ×2 (08:52→22:01)
[2021-06-28] MEDS: Silver Sulfadiazine 50 GM TUBE TOP SCH ×2 (08:53→22:02)
[2021-06-28 11:04] LABS: #Basophils 0.1 thou/uL (0.0-0.2); #Eosinphils 0.2 thou/uL (0.0-0.7); #Lymphocytes 1.7 thou/uL (1.20-3.40); #Monocytes 0.5 thou/uL (0.11-0.59); #Neutrophils 5.5 thou/uL (1.40-6.50); %Basophils 0.7 % (0.0-1.0); %Eosinophils 2.9 % (0.0-10.0); %Lymphocytes 21.3 % (21.0-51.0); %Monocytes 6.3 % (0.0-10.0); %Neutrophils 68.9 % (42.0-75.0); Hemoglobin 11.6 g/dL (14.0-18.0); Mean Corpuscular HGB CONC 33.6 g/dL (32.0-36.0); Mean Corpuscular Hemoglobin 31.9 pg (27.0-31.0); Mean Corpuscular Volume 95.2 fL (78.0-98.0); Mean Platelet Volume 6.3 fL (7.4-10.4); Platelet Count 725 thou/uL (130-400); RBC Distribution Width 13.5 % (11.5-14.5); Red Blood Cell (RBC) Count 3.63 mill/uL (4.70-6.10)
[2021-06-28 11:26] LABS: Anion Gap 11 mmol/L (10-20); BUN (Urea Nitrogen) 19 mg/dL (8.9-20.6); Calc. Creatinine Clearance 257 mL/min (70-130); Calcium 9.3 mg/dL (7.8-10.44); Carbon Dioxide 27 mmol/L (22-29); Chloride 103 mmol/L (98-107); Glucose 103 mg/dL (70-105); Potassium 4.3 mmol/L (3.5-5.1); Sodium 137 mmol/L (136-145)
[2021-06-28 14:27] LABS: SARS-CoV-2 NAA Rapid Test Not Detected (NotDetected)
[2021-06-28] MEDS: Melatonin 3 MG TAB PO SCH (22:02)
[2021-06-29 00:09] VITALS: BP 124/78; TEMP 98.4
[2021-06-29] MEDS: Acetaminophen 500 MG TAB PO SCH (00:53)
[2021-06-29] MEDS: traMADol HCl 50 MG TAB PO SCH (00:54)
== END 2021-06-29 03:15 | DRG 492 ==
LOC: EDBD 02:32 → ERS 02:32 → IMCU/EMU 05:14 → SURG B 06-13 15:05 → SJJU 06-13 15:50
PROVIDERS: ADMIT Specialist; ATTEND Surgery
PROC: 0HQ1XZZ Repair Face Skin, External Approach (ICD-10-PCS; 2021-06-12)
PROC: 0QSH04Z Reposition Left Tibia with Internal Fixation Device, Open Approach (ICD-10-PCS; principal; 2021-06-13)
PROC: 0T9B80Z Drainage of Bladder with Drainage Device, Via Natural or Artificial Opening Endoscopic (ICD-10-PCS; 2021-06-13)
PROC: 30233N1 Transfusion of Nonautologous Red Blood Cells into Peripheral Vein, Percutaneous Approach (ICD-10-PCS; 2021-06-15)
DX: S82.142A Displaced bicondylar fracture of left tibia, initial encounter for closed fracture (principal); Z20.822 Contact with and (suspected) exposure to COVID-19; Z23 Encounter for immunization; S36.032A Major laceration of spleen, initial encounter; S02.19XA Other fracture of base of skull, initial encounter for closed fracture; S42.252A Displaced fracture of greater tuberosity of left humerus, initial encounter for closed fracture; S22.42XA Multiple fractures of ribs, left side, initial encounter for closed fracture; S02.32XA Fracture of orbital floor, left side, initial encounter for closed fracture; S02.40DA Maxillary fracture, left side, initial encounter for closed fracture; S02.0XXA Fracture of vault of skull, initial encounter for closed fracture; S32.019A Unspecified fracture of first lumbar vertebra, initial encounter for closed fracture; S06.0X9A Concussion with loss of consciousness of unspecified duration, initial encounter; D62 Acute posthemorrhagic anemia; S01.81XA Laceration without foreign body of other part of head, initial encounter; R40.2142 Coma scale, eyes open, spontaneous, at arrival to emergency department; R40.2362 Coma scale, best motor response, obeys commands, at arrival to emergency department; R40.2252 Coma scale, best verbal response, oriented, at arrival to emergency department; S83.421A Sprain of lateral collateral ligament of right knee, initial encounter; F17.290 Nicotine dependence, other tobacco product, uncomplicated; S83.521A Sprain of posterior cruciate ligament of right knee, initial encounter; D72.823 Leukemoid reaction; R33.9 Retention of urine, unspecified; V03.99XA Pedestrian with other conveyance injured in collision with car, pick-up truck or van, unspecified whether traffic or nontraffic accident, initial encounter; Y92.410 Unspecified street and highway as the place of occurrence of the external cause
CPT/HCPCS: 12013; 36415; 36416; 36430; 70450; 70486; 71045; 71260; 72125; 74177; 76000; 80048; 80053; 80306; 80307; 81001; 83690; 83735; 84100; 84443; 85007; 85025; 85027; 86850; 86900; 86901; 87086; 90471; 90715; 93005; 93010; 94640; 96365; 96366; 96375; C1713; G0390; J0290; J0360; J0690; J1100; J1170; J1650; J1885; J2001; J2270; J2370; J2405; J2704; J3010; J3475; J7030; J7050; J7620; P9016; Q9967; S0020; S0028; U0002; U0003; U0005